=== PATIENT | female | born 1960 | race Two or more races ===

== ENCOUNTER 2024-01-14 08:13 | Day surgery (SDC) | payer BC ==
[~2024-01-14 08:13] MED LIST: Sodium Chloride 0.9% 10 ML Syringe FLUSH PRN; Sodium Chloride 0.9% 10 ML Syringe FLUSH SCH
[2024-01-14] MEDS: Lactated Ringers 1,000 ML IV SCH (08:45)
[2024-01-14] MEDS ORDERED: Propofol 200 MG/20 ML SDV ONE ×2 (10:40→11:12)
[2024-01-14] MEDS ORDERED: Lidocaine 1% 4 ML ONE (10:42)
== END 2024-01-14 12:35 | disposition home or self-care (01) ==
LOC: JD.SDS 08:13
PROVIDERS: ATTEND Surgery
DX: Z12.11 Encounter for screening for malignant neoplasm of colon (principal); K57.30 Diverticulosis of large intestine without perforation or abscess without bleeding; K64.0 First degree hemorrhoids; I10 Essential (primary) hypertension; Z86.010 Personal history of colon polyps; Z79.899 Other long term (current) drug therapy
CPT/HCPCS: J2704; J3490; J7120

== ENCOUNTER 2024-04-13 09:12 | Day surgery (SDC) | payer BC ==
[~2024-04-13 09:12] MED LIST changes: +Midazolam 1 MG/ML 2 ML SDV ONE; +Propofol 200 MG/20 ML SDV ONE; +ceFAZolin 2 GM Vial ONE
[2024-04-13] MEDS: Lactated Ringers 1,000 ML IV SCH (09:30)
[2024-04-13] MEDS: Pregabalin 25 MG Cap PO ONE (09:47)
[2024-04-13] MEDS: oxyCODONE ER 10 MG TAB.ER PO ONE (09:47)
[2024-04-13] MEDS: Acetaminophen 325 MG Tab PO ONE (09:47)
[2024-04-13] MEDS ORDERED: Lactated Ringers 1,000 ML ONE (11:08)
[2024-04-13] MEDS ORDERED: Ondansetron 4 MG/2 ML SDV ONE (11:09)
[2024-04-13] MEDS ORDERED: Ketorolac 30 MG/ML SDV ONE (11:09)
[2024-04-13] MEDS ORDERED: ePHEDrine 50 MG/ML SDV ONE (11:09)
[2024-04-13] MEDS ORDERED: fentaNYL 100 MCG/2 ML SDV IVPUSH PRN (11:19)
[2024-04-13] MEDS ORDERED: HYDROmorphone 0.5 MG/0.5 ML Syringe IVPUSH PRN (11:19)
[2024-04-13] MEDS ORDERED: Propofol 200 MG/20 ML SDV ONE (11:39)
[2024-04-13] MEDS: Morphine 8 MG, EPINEPHrine 0.3 MG, Cefuroxime 750 MG, Ketorolac 30 MG, Sodium Chloride ... PRN (11:49)
[2024-04-13] MEDS: Vancomycin 1 GM SDV ONE (11:50)
[2024-04-13] MEDS: Tranexamic Acid 1,000 MG/10 ML Vial ONE (11:50)
[2024-04-13] MEDS: Ondansetron 4 MG/2 ML SDV IVPUSH PRN (13:38)
[2024-04-13] MEDS: oxyCODONE 5 MG Tab PO PRN (14:51)
[2024-04-13] MEDS: droPERidol 5 MG/2 ML SDV IVPUSH ONE (15:32)
== END 2024-04-13 16:15 | disposition home or self-care (01) ==
LOC: JD.SDS 09:12
PROVIDERS: ATTEND Orthopaedic Surgery
DX: M16.11 Unilateral primary osteoarthritis, right hip (principal); I10 Essential (primary) hypertension; E78.5 Hyperlipidemia, unspecified; L21.9 Seborrheic dermatitis, unspecified; Z79.899 Other long term (current) drug therapy
CPT/HCPCS: 0055T; 27130; 36415; 73501; 86850; 86900; 86901; 97110; 97161; A9270; C1713; C1776; J0171; J0690; J0697; J1790; J1885; J2250; J2270; J2405; J2704; J3370; J7120; 01214; J3490